=== PATIENT | male | born 1955 | race Caucasian/White ===

== ENCOUNTER 2017-04-27 20:52 | Emergency (ER) | payer OTHER ==
[2017-04-27 22:23] VITALS: BP 128/79
== END 2017-04-27 22:24 | disposition home or self-care (01) ==
LOC: ED 20:52
DX: S81.851A Open bite, right lower leg, initial encounter (principal); I10 Essential (primary) hypertension; E11.9 Type 2 diabetes mellitus without complications; E78.00 Pure hypercholesterolemia, unspecified; Z79.84 Long term (current) use of oral hypoglycemic drugs; Z79.899 Other long term (current) drug therapy; W54.0XXA Bitten by dog, initial encounter; Y93.89 Activity, other specified; Y92.89 Other specified places as the place of occurrence of the external cause; Y99.8 Other external cause status
CPT/HCPCS: 90715; J0295

== ENCOUNTER 2019-07-02 15:07 | Emergency (ER) | payer OTHER ==
[~2019-07-02] VITALS: Ht 165.1 cm; Wt 85.7 kg
[2019-07-02 15:12] VITALS: Ht 165.1 cm; Wt 85.7 kg
[2019-07-02 18:31] VITALS: BP 122/83
== END 2019-07-02 18:31 | disposition home or self-care (01) ==
LOC: ED 15:07
DX: M54.6 Pain in thoracic spine (principal); I10 Essential (primary) hypertension; E11.9 Type 2 diabetes mellitus without complications; E78.00 Pure hypercholesterolemia, unspecified

== ENCOUNTER 2020-02-20 08:25 | Emergency (ER) | payer OTHER, SELFPAY ==
[~2020-02-20] VITALS: Ht 167.6 cm; Wt 83.9 kg
[2020-02-20 08:31] VITALS: Ht 167.6 cm; Wt 83.9 kg
[2020-02-20 10:24] VITALS: BP 160/85
== END 2020-02-20 10:24 | disposition home or self-care (01) ==
LOC: ED 08:25
DX: U07.1 COVID-19 (principal); J12.89 Other viral pneumonia; E11.9 Type 2 diabetes mellitus without complications; E78.00 Pure hypercholesterolemia, unspecified; I10 Essential (primary) hypertension
CPT/HCPCS: 87804; Q0092; U0003-CS

== ENCOUNTER 2020-03-04 14:21 | Emergency (ER) | payer OTHER, SELFPAY ==
[~2020-03-04] VITALS: Ht 162.6 cm; Wt 86.2 kg
[2020-03-04 14:56] VITALS: Ht 162.6 cm; Wt 86.2 kg
[2020-03-04 16:15] VITALS: BP 132/76
== END 2020-03-04 16:15 | disposition home or self-care (01) ==
LOC: ED 14:21
DX: Z03.818 Encounter for observation for suspected exposure to other biological agents ruled out (principal); Z02.79 Encounter for issue of other medical certificate; I10 Essential (primary) hypertension; E11.9 Type 2 diabetes mellitus without complications; E78.00 Pure hypercholesterolemia, unspecified

== ENCOUNTER 2020-05-09 13:35 | Emergency (ER) | payer OTHER ==
[~2020-05-09] VITALS: Ht 162.6 cm; Wt 82.6 kg
[2020-05-09 13:53] VITALS: Ht 162.6 cm; Wt 82.6 kg
[2020-05-09 15:17] VITALS: BP 139/79
== END 2020-05-09 15:17 | disposition home or self-care (01) ==
LOC: ED 13:35
DX: N48.1 Balanitis (principal); E11.65 Type 2 diabetes mellitus with hyperglycemia; I10 Essential (primary) hypertension; E78.00 Pure hypercholesterolemia, unspecified

== ENCOUNTER 2020-05-29 07:59 | Emergency (ER) | payer OTHER ==
[~2020-05-29] VITALS: Ht 165.1 cm; Wt 83.9 kg
[2020-05-29 08:13] VITALS: Ht 165.1 cm; Wt 83.9 kg
[2020-05-29 08:46] VITALS: BP 141/80
== END 2020-05-29 08:47 | disposition home or self-care (01) ==
LOC: ED 07:59
DX: S61.412A Laceration without foreign body of left hand, initial encounter (principal); I10 Essential (primary) hypertension; E11.9 Type 2 diabetes mellitus without complications; E78.00 Pure hypercholesterolemia, unspecified; W26.8XXA Contact with other sharp object(s), not elsewhere classified, initial encounter; Y93.89 Activity, other specified; Y92.89 Other specified places as the place of occurrence of the external cause; Y99.8 Other external cause status
CPT/HCPCS: J2001

== ENCOUNTER 2020-06-15 10:06 | Emergency (ER) | payer OTHER ==
[~2020-06-15] VITALS: Ht 162.6 cm; Wt 83.5 kg
[2020-06-15 10:12] VITALS: Ht 162.6 cm; Wt 83.5 kg
[2020-06-15 11:17] VITALS: BP 165/98
[2020-06-16] MEDS ORDERED: TEST STRIPS1 EACH MC (17:24)
[2020-06-16] MEDS ORDERED: BLOOD LANCETS1 EACH TOP (17:24)
[2020-06-16] MEDS ORDERED: METFORMIN HYD1000 M2 PO (17:25)
== END 2020-06-15 11:17 | disposition home or self-care (01) ==
LOC: ED 10:06
DX: S61.213D Laceration without foreign body of left middle finger without damage to nail, subsequent encounter (principal); I10 Essential (primary) hypertension; E11.9 Type 2 diabetes mellitus without complications; E78.00 Pure hypercholesterolemia, unspecified; X58.XXXD Exposure to other specified factors, subsequent encounter

== ENCOUNTER 2020-06-15 18:51 | Inpatient (IN) | payer OTHER ==
[~2020-06-15] VITALS: Ht 165.1 cm; Wt 128.8 kg
[2020-06-15 19:20] VITALS: Ht 165.1 cm; Wt 128.8 kg
[2020-06-15 21:53] LABS: BASOPHIL % 0.3 % (0-2); PLATELET COUNT 245 x10^3mcL (130-400); RED CELL DISTRIBUTION WIDTH 12.9 % (11.5-14.5)
[2020-06-15 22:20] LABS: CALCIUM 9.2 mg/dL (8.5-10.1); CARBON DIOXIDE 29.8 mmol/L (21-32); CHLORIDE SERUM 97 mmol/L (98-107); CREATININE SERUM 0.9 mg/dL (0.7-1.3); GFR1 > 60 mL/min; GLUCOSE SERUM 342 mg/dL (74-106); POTASSIUM SERUM 4.3 mmol/L (3.5-5.1); SODIUM SERUM 134 mmol/L (136-145)
[2020-06-15 22:31] LABS: ALBUMIN 3.7 g/dL (3.4-5.0); ALKALINE PHOSPHATASE 94 U/L (46-116); ALT/SGPT 30 U/L (16-63); AST/SGOT 18 U/L (15-37); BILIRUBIN TOTAL 0.7 mg/dL (0.20-1.00); CHOLESTEROL 187 mg/dL (<200); HDL CHOLESTEROL 43 mg/dL (40-60); LIPASE 487 IU/L (73-393); MAGNESIUM 1.9 mg/dL (1.8-2.4); T4(THYROXINE) 8.6 ug/dL (4.7-13.3); TOTAL PROTEIN, SERUM 7.2 g/dL (6.4-8.2)
[2020-06-15 23:29] LABS: microscopic required? NO
[2020-06-16] LABS: urine erythrocyte NEGATIVE (NEGATIVE)
[2020-06-16 00:53] LABS: AMPHETAMINE QUAL UR NONE DETECTED (See below)
[2020-06-16 03:41] VITALS: BP 147/87
[2020-06-16 07:30] LABS: ALKALINE PHOSPHATASE 69 U/L (46-116); ALT/SGPT 26 U/L (16-63); AST/SGOT 25 U/L (15-37); BILIRUBIN TOTAL 0.73 mg/dL (0.20-1.00); CALCIUM 7.8 mg/dL (8.5-10.1); CARBON DIOXIDE 27.3 mmol/L (21-32); CHLORIDE SERUM 103 mmol/L (98-107); CREATININE SERUM 0.8 mg/dL (0.7-1.3); GFR1 > 60 mL/min; GLUCOSE SERUM 190 mg/dL (74-106); LIPASE 354 IU/L (73-393); MAGNESIUM 2.1 mg/dL (1.8-2.4); POTASSIUM SERUM 3.3 mmol/L (3.5-5.1); SODIUM SERUM 137 mmol/L (136-145)
[2020-06-16 07:31] LABS: ALBUMIN 2.9 g/dL (3.4-5.0); BASOPHIL % 0.4 % (0-2); PLATELET COUNT 210 x10^3mcL (130-400); RED CELL DISTRIBUTION WIDTH 12.9 % (11.5-14.5); TOTAL PROTEIN, SERUM 6.1 g/dL (6.4-8.2)
[2020-06-16 08:48] VITALS: BP 152/88
[2020-06-16 13:38] VITALS: BP 144/83
[2020-06-16] MEDS ORDERED: BLOOD LANCETS1 EACH TOP (17:24)
[2020-06-16] MEDS ORDERED: TEST STRIPS1 EACH MC (17:24)
[2020-06-16] MEDS ORDERED: METFORMIN HYD1000 M2 PO (17:25)
[2020-06-16 17:33] VITALS: BP 144/83
[2020-06-16 18:18] VITALS: BP 161/80
== END 2020-06-16 19:05 | disposition home or self-care (01) | DRG 282 ==
LOC: ED 18:51 → DU 23:39 → MU 23:39 → DU 06-16 03:11 → MU 06-16 13:10
PROVIDERS: Emergency Medicine; ADMIT Hospitalist; ATTEND Hospitalist
DX: K85.90 Acute pancreatitis without necrosis or infection, unspecified (principal); E11.65 Type 2 diabetes mellitus with hyperglycemia; I10 Essential (primary) hypertension; E78.00 Pure hypercholesterolemia, unspecified; Z20.828 Contact with and (suspected) exposure to other viral communicable diseases; E66.9 Obesity, unspecified; F10.20 Alcohol dependence, uncomplicated; Z68.30 Body mass index [BMI] 30.0-30.9, adult; Z79.84 Long term (current) use of oral hypoglycemic drugs; Z71.41 Alcohol abuse counseling and surveillance of alcoholic; Z79.899 Other long term (current) drug therapy
CPT/HCPCS: 82962; 83880; G0378; G0480; J0500; J1650; J1815; J3411; J3475; J3490; J7030; J7042; Q0092